=== PATIENT | female | born 1995 | race Caucasian/White ===

== ENCOUNTER 2016-09-10 12:02 | Emergency (ER) | payer OTHER ==
[~2016-09-10] VITALS: Ht 157.5 cm; Wt 49.4 kg
[2016-09-10 12:35] VITALS: BP 112/63
--- NOTE | 2016-09-10 14:26 | NUR ---
PATIENT AMBULATED TO BED 2 AT THIS TIME.
--- NOTE | 2016-09-10 14:32 | NUR ---
PATIENT PRESENTS TO ED WITH 2ND TOE W PAIN, REDNESS AND MILD SWELLING APPEARING ALSO COUGH X2 DAYS. DENIES N/V/D; SKIN IS PINK/WARM/DRY; AAOX4 WITH EVEN AND STEADY GAIT;HR EVEN AND REGULAR; PT DENIES ANY FEVER, CP, SOB AT THIS TIME; PATIENT STATES PAIN OF 6/10 AT THIS TIME;PATIENT POSITIONED FOR COMFORT; HOB ELEVATED; BEDRAILS UP X2; BED DOWN. NEEDS ATTENDED.ER MD MADE AWARE OF PT STATUS.
--- NOTE | 2016-09-10 15:20 | NUR ---
DR BENEDICT AT BEDSIDE
--- NOTE | 2016-09-10 15:34 | NUR ---
Patient discharged with v/s stable. Written and verbal after care instructions given and explained. Patient alert, oriented and verbalized understanding of instructions. Ambulatory with steady gait. All questions addressed prior to discharge. ID band removed. Patient advised to follow up with PMD. Rx of SUDAFED,MOTRIN,KEFLEX,PREDNISONE,BACTRIM given. Patient educated on indication of medication including possible reaction and side effects. Opportunity to ask questions provided and answered.
[2016-09-10 15:35] VITALS: BP 123/80
== END 2016-09-10 15:34 | disposition home or self-care (01) ==
LOC: MED 12:02
DX: L60.0 Ingrowing nail (principal); L03.90 Cellulitis, unspecified; J06.9 Acute upper respiratory infection, unspecified

== ENCOUNTER 2016-09-30 03:45 | Emergency (ER) | payer OTHER ==
[~2016-09-30] VITALS: Ht 157.5 cm; Wt 49.4 kg
[2016-09-30 03:51] VITALS: BP 129/88
--- NOTE | 2016-09-30 04:00 | NUR ---
Patient ambulated to bed 06.
--- NOTE | 2016-09-30 04:16 | NUR ---
PT PRESENTS TO ER WITH C/O WORRY AFTER SLEEPWALKING. PT STATES SHE PLACED HER PHONE IN THE [place]CR[place]AVE THINKING THAT IT WAS A BOTTLE. PT STATES SHE IS STRESSED PT STATES DENIES N/V/D; SKIN IS PINK/WARM/DRY; AAOX4 WITH EVEN AND STEADY GAIT; LUNGS CLEAR BL; HR EVEN AND REGULAR; PT DENIES ANY FEVER, CP, SOB, OR COUGH AT THIS TIME; PATIENT STATES PAIN OF 0/10 AT THIS TIME; VSS; PATIENT POSITIONED FOR COMFORT; HOB ELEVATED; BEDRAILS UP X2; BED DOWN. ER MD MADE AWARE OF PT STATUS.
--- NOTE | 2016-09-30 04:30 | NUR ---
PT STATES SHE IS STRESSED WITH TAKING CARE OF THE BABY AND HER GMA WITH [employer]. STATES HER AND THE BABY'S FATHER ARE HAVING RELATIONSHIP PROBLEMS. ENCOURAGED THE PT AND BABY'S FATHER TO TALK AND TRY AND COME UP WITH SOME SOLUTIONS.
--- NOTE | 2016-09-30 04:48 | NUR ---
PT AND BABY'S DAD ARE TALKING NOW ABOUT RELATIONSHIP ISSUES.
--- NOTE | 2016-09-30 05:37 | NUR ---
pt states she feels better now, just tired. she and the baby's father are continuing to communicate.
--- NOTE | 2016-09-30 06:20 | NUR ---
DR CAMARGO AT BEDSIDE
--- NOTE | 2016-09-30 06:32 | NUR ---
Patient discharged with v/s stable. Written and verbal after care instructions given and explained. Patient verbalized understanding. Ambulatory with steady gait. All questions addressed prior to discharge. Advised to follow up with PMD.
[2016-09-30 06:33] VITALS: BP 125/85
== END 2016-09-30 06:32 | disposition home or self-care (01) ==
LOC: MED 03:45
DX: G47.00 Insomnia, unspecified (principal)

== ENCOUNTER 2017-08-16 22:07 | Emergency (ER) | payer OTHER ==
[~2017-08-16] VITALS: Ht 154.9 cm; Wt 48.1 kg
[2017-08-16 22:16] VITALS: BP 114/73
--- NOTE | 2017-08-16 23:15 | NUR ---
PATIENT IS A 22 Y/O FEMALE WHO PRESENTS TO THE ED S/P FALL. PT STATES, "I FELL AT [place] IN THE BOX AND MY LEFT LEG HURTS." PT REPORTS 9/10 SHARP LEFT LEG PAIN THAT DOES NOT RADIATE. PT DENIES CP, SOB, N/V/D. CMS INTACT, NO OBVIOUS DEFORMITY OR OPEN BLEEDING. PT AAOX4, RR EVEN/UNLABORED. PT REPOSITIONED FOR COMFORT, SITTING IN CHAIR. ER MD DR. KNAPP NOTIFIED. WILL CONTINUE TO MONITOR.
[2017-08-17] VITALS: BP 121/80
== END 2017-08-17 | disposition home or self-care (01) ==
LOC: MED 22:07
DX: S80.02XA Contusion of left knee, initial encounter (principal); W18.30XA Fall on same level, unspecified, initial encounter; Y93.89 Activity, other specified; Y92.89 Other specified places as the place of occurrence of the external cause; Y99.8 Other external cause status
CPT/HCPCS: 81025; 99283

== ENCOUNTER 2018-10-20 12:54 | Emergency (ER) | payer OTHER ==
[~2018-10-20] VITALS: Ht 154.9 cm; Wt 52.2 kg
[2018-10-20 12:58] VITALS: BP 124/52
--- NOTE | 2018-10-20 15:46 | NUR ---
PT TO ER CHAIR E
--- NOTE | 2018-10-20 16:18 | NUR ---
Pt taken to x-ray via w/c.
--- NOTE | 2018-10-20 16:21 | NUR ---
Pt returned from x-ray and placed into chair EKajal DESHPANDE noted.
[2018-10-20 16:52] VITALS: BP 124/74
--- NOTE | 2018-10-20 16:52 | NUR ---
Patient discharged with v/s stable. Written and verbal after care instructions given and explained. Patient alert, oriented and verbalized understanding of instructions. Ambulatory with steady gait. All questions addressed prior to discharge. ID band removed. Patient advised to follow up with PMD. Rx of Motrin 400mg given. Patient educated on indication of medication including possible reaction and side effects. Opportunity to ask questions provided and answered.
== END 2018-10-20 16:52 | disposition home or self-care (01) ==
LOC: MED 12:54
DX: M79.641 Pain in right hand (principal)
CPT/HCPCS: 73130; 99283

== ENCOUNTER 2019-07-14 10:45 | Emergency (ER) | payer OTHER ==
[~2019-07-14] VITALS: Ht 160 cm; Wt 50.5 kg
[2019-07-14 10:50] VITALS: BP 118/77
[2019-07-14 11:43] VITALS: BP 118/77
== END 2019-07-14 12:02 | disposition home or self-care (01) ==
LOC: MED 10:45
DX: J02.9 Acute pharyngitis, unspecified (principal); R05 Cough
CPT/HCPCS: 81002; 81025; 99283

== ENCOUNTER 2020-03-07 13:04 | Emergency (ER) | payer OTHER ==
[~2020-03-07] VITALS: Ht 154.9 cm; Wt 50.8 kg
[2020-03-07 13:09] VITALS: BP 123/74
[2020-03-07 13:41] VITALS: BP 123/74
== END 2020-03-07 13:42 | disposition home or self-care (01) ==
LOC: MED 13:04
DX: L30.4 Erythema intertrigo (principal)
CPT/HCPCS: 99283

== ENCOUNTER 2020-06-21 21:42 | Emergency (ER) | payer OTHER ==
[~2020-06-21] VITALS: Ht 154.9 cm; Wt 48.5 kg
[2020-06-21 21:57] VITALS: BP 127/75
--- NOTE | 2020-06-21 22:53 | NUR ---
URINE SPECIMEN COLLECTED
--- NOTE | 2020-06-21 23:06 | NUR ---
lab at bedside
[2020-06-21 23:12] LABS: APPEARANCE,URINE CLEAR (CLEAR); BILIRUBIN,URINE NEGATIVE (NEGATIVE); BLOOD, URINE 2+ (NEGATIVE); COLOR,URINE YELLOW (YELLOW); LEUKOCYTE ESTERASE ,URINE TRACE (NEGATIVE); NITRITE, URINE NEGATIVE (NEGATIVE); UGLUCOSE NEGATIVE (NEGATIVE)
[2020-06-21 23:26] LABS: BASOPHILS % (AUTO) 0.4 % (0.0-2.0); EOSINOPHILS # (AUTO) 0.1 K/uL (0-0.4); HEMATOCRIT 32.9 % (36-48); HEMOGLOBIN 11.3 g/dL (12.0-16.0); LYMPHOCYTES # (AUTO) 1.9 K/uL (2.5-16.5); LYMPHOCYTES % (AUTO) 22.8 % (20.5-51.1); MEAN CORPUSCULAR HEMOGLOBIN 32 pg (27-31); MEAN CORPUSCULAR HGB CONC 34 g/dL (33-37); MEAN CORPUSCULAR VOLUME 91.8 fL (80-94); MONOCYTES # (AUTO) 0.6 K/uL (0.8-1.0); MONOCYTES % (AUTO) 7.4 % (1.7-9.3); NEUTROPHILS # (AUTO) 5.6 K/uL (1.8-7.7); NEUTROPHILS % (AUTO) 68.4 % (42.2-75.2); PLATELET COUNT (AUTO) 136 K/uL (140-450); RED BLOOD CELL COUNT(AUTO) 3.58 MIL/uL (4.20-5.40); RED CELL DISTRIBUTION WIDTH 12.7 % (11.6-13.7); WHITE BLOOD COUNT (AUTO) 8.2 K/uL (4.8-10.8)
--- NOTE | 2020-06-21 23:30 | NUR ---
ULTRASOUND AT BEDSIDE
--- NOTE | 2020-06-21 23:45 | NUR ---
ERMD AT BEDSIDE FOR MEDICAL EVALUATION
[2020-06-22 00:36] LABS: WBC,URINE 0-5 /HPF (0-5)
--- NOTE | 2020-06-22 02:10 | NUR ---
pt ambulated to restroom with a steady gait
--- NOTE | 2020-06-22 02:15 | NUR ---
pt ambulated back to ed bed #12 from the restroom with a steady gait
--- NOTE | 2020-06-22 02:15 | NUR ---
SPOKE W/ ERMNevaeh REGARDING PT STATUS - PER ERMD HE WILL BE DISCHARGING PT. WAITING FOR DISCHARGE PAPERS AT THIS TIME.
--- NOTE | 2020-06-22 02:30 | NUR ---
POOJA SILVA PERFORMED COMPLETE ASSESSMENT. NO NURSING INTERVENTIONS WERE NEED. PT IS NOT IN ANY ACUTE DISTRESS. PT IS ON PHONE SITTING UPRIGHT IN BED AND DENIES ANY PAIN. BED IS LOCKED AND IN LOWEST POSITION. SIDE RAILS X1.
[2020-06-22 02:45] VITALS: BP 115/67
== END 2020-06-22 02:45 | disposition home or self-care (01) ==
LOC: MED 21:42
DX: O20.0 Threatened abortion (principal); O20.9 Hemorrhage in early pregnancy, unspecified; Z3A.10 10 weeks gestation of pregnancy
CPT/HCPCS: 36415; 76801; 81001; 84702; 85025; 86900; 86901; 99284